=== PATIENT | male | born 1980 | race Caucasian/White ===

== ENCOUNTER 2018-11-10 22:38 | Emergency (ER) | payer OTHER ==
--- NOTE | 2018-11-10 23:14 | EDM.PDOC ---
ED HPI GENERAL MEDICAL PROBLEM - General Chief Complaint: Cardiovascular Problem Stated Complaint: heart rate Time Seen by Provider: 11/10/18 22:55 Source of Information: Reports: Patient History Limitations: Reports: No Limitations - History of Present Illness INITIAL COMMENTS - FREE TEXT/NARRATIVE: The patient presents with heart palpitations. He says since about 5 today he has noticed his heart beating hard and irregular at times. He has a history of SVT but he had an ablation and that took care of that. At times he will get some extra beats but not this hard. He has regular appointments with his rehab rn. He denies fever, chills, cough, congestion, runny nose, chest pain, shortness of breath, abdominal pain, nausea or vomiting. He does not consume much caffeine. He does not smoke or chew. He just quit chewing a couple weeks ago. Onset: Gradual Duration: Hour(s): Severity: Moderate Improves with: Reports: None Worsens with: Reports: None Associated Symptoms: Reports: No Other Symptoms - Related Data Allergies Allergy/AdvReac Type Severity Reaction Status Date / Time No Known Allergies Allergy Verified 11/10/18 22:49 Home Meds: Home Meds Esomeprazole [NexIUM] 40 mg PO DAILY 07/16/18 [History] Metoprolol Tartrate 25 mg PO BID #60 tablet 11/11/18 [Rx] Past Medical History - Past Health History Medical/Surgical History: Denies Medical/Surgical History HEENT History: Reports: Impaired Vision Cardiovascular History: Reports: Arrhythmia, Other (See Below) Other Cardiovascular History: ablation 2011 due to runs of SVT Gastrointestinal History: Reports: GERD - Infectious Disease History Infectious Disease History: Reports: Chicken Pox Social & Family History - Family History Family Medical History: Noncontributory - Tobacco Use Smoking Status *Q: Former Smoker Used Tobacco, but Quit: Yes Month/Year Tobacco Last Used: 09/2018 Tobacco Use Comment: quite chewing this september - Caffeine Use Caffeine Use: Reports: Soda - Recreational Drug Use Recreational Drug Use: No ED ROS GENERAL - Review of Systems Review Of Systems: See Below Constitutional: Reports: No Symptoms HEENT: Reports: No Symptoms Respiratory: Reports: No Symptoms Cardiovascular: Reports: Palpitations. Denies: Chest Pain Endocrine: Reports: No Symptoms GI/Abdominal: Reports: No Symptoms : Reports: No Symptoms ED EXAM, GENERAL - Physical Exam Exam: See Below Exam Limited By: No Limitations General Appearance: Alert, No Apparent Distress Ears: Normal External Exam Nose: Normal Inspection Head: Atraumatic, Normocephalic Neck: Normal Inspection Respiratory/Chest: No Respiratory Distress, Lungs Clear, Normal Breath Sounds Cardiovascular: Regular Rate, Rhythm, No Edema, No Murmur GI/Abdominal: Soft, Non-Tender, No Organomegaly, No Mass Back Exam: Normal Inspection Extremities: Normal Inspection EKG INTERPRETATION EKG Date: 11/11/18 Time: 23:12 Rhythm: Other (sinus bradycardia) Rate (Beats/Min): 57 [place]: Normal P-Wave: Present QRS: Normal ST-T: Normal QT: Normal Course - Vital Signs Last Recorded V/S: Last Vital Signs Temp 98.9 F 11/10/18 22:45 Pulse 64 11/11/18 00:18 Resp 19 11/10/18 22:45 BP 124/75 11/11/18 00:18 Pulse Ox 99 11/10/18 22:45 - Orders/Labs/Meds Orders: Active Orders 24 hr Category Date Time Status Cardiac Monitoring [RC] . DIRECTED Care 11/10/18 23:02 Active EKG Documentation Completion [RC] STAT Care 11/10/18 23:02 Active Labs: Laboratory Tests 11/10/18 11/10/18 Range/Units 23:10 23:10 WBC 5.24 (4.23-9.07) K/mm3 RBC 5.15 (4.63-6.08) M/mm3 Hgb 15.5 (13.7-17.5) gm/L Hct 43.1 (40.1-51.0) % MCV 83.7 (79.0-92.2) fl MCH 30.1 (25.7-32.2) pg MCHC 36.0 H (32.2-35.5) g/dl RDW Std Deviation 36.7 (35.1-43.9) fL Plt Count 219 (163-337) K/mm3 MPV 10.0 (9.4-12.3) fl Neut % (Auto) 54.6 (34.0-67.9) % Lymph % (Auto) 37.0 (21.8-53.1) % [place] % (Auto) 5.9 (5.3-12.2) % Eos % (Auto) 1.7 (0.8-7.0) Baso % (Auto) 0.6 (0.1-1.2) % Neut # (Auto) 2.86 (1.78-5.38) K/mm3 Lymph # (Auto) 1.94 (1.32-3.57) K/mm3 [place] # (Auto) 0.31 (0.30-0.82) K/mm3 Eos # (Auto) 0.09 (0.04-0.54) K/mm3 Baso # (Auto) 0.03 (0.01-0.08) K/mm3 Sodium 141 (136-145) mEq/L Potassium 4.4 (3.5-5.1) mEq/L Chloride 106 (98-107) mEq/L Carbon Dioxide 28 (21-32) mEq/L Anion Gap 11.4 (5-15) BUN 14 (7-18) mg/dL Creatinine 1.2 (0.7-1.3) mg/dL Est Cr Clr Drug Dosing 87.03 mL/min Estimated GFR (MDRD) > 60 (>60) mL/min BUN/Creatinine Ratio 11.7 L (14-18) Glucose 98 (74-106) mg/dL Calcium 9.2 (8.5-10.1) mg/dL Magnesium 1.9 (1.8-2.4) mg/dl Total Bilirubin 0.7 (0.2-1.0) mg/dL AST 16 (15-37) U/L ALT 28 (16-63) U/L Alkaline Phosphatase 46 (46-116) U/L Troponin I < 0.017 (0.00-0.056) ng/mL Total Protein 7.7 (6.4-8.2) g/dl Albumin 4.4 (3.4-5.0) g/dl Globulin 3.3 gm/dL Albumin/Globulin Ratio 1.3 (1-2) TSH 3rd Generation 1.794 (0.358-3.74) uIU/mL Meds: Medications Discontinued Medications Generic Name Dose Route Start Last Admin Trade Name Freq PRN Reason Stop Dose Admin Metoprolol Tartrate 25 mg 11/11/18 00:01 11/11/18 00:18 Lopressor PO 11/11/18 00:02 25 mg ONETIME ONE Administration - Re-Assessments/Exams Free Text/Narrative Re-Assessment/Exam: 11/11/18 00:49 His EKG shows nothing acute. His CBC and CMP look good. His troponin and TSH were normal. He does have some PACs that he is noticing. They are uncomfortable. I gave him some metoprolol to see if that helped and it did not help much. I will try a prescription for metoprolol. Departure - Departure Time of Disposition: 00:55 Disposition: Home, Self-Care 01 Condition: Good Clinical Impression: Palpitations Prescriptions: Metoprolol Tartrate 25 mg PO BID #60 tablet Forms: ED Department Discharge Additional Instructions: Follow up with your rehab rn. Take the metoprolol 25mg 2 times per day when you are feeling the premature atrial contractions. If you are not having troubles you may not need to take the medications. Try to avoid all stimulants the next week. Please return if you are worse. - My Orders Last 24 Hours: My Active Orders 11/10/18 23:02 Cardiac Monitoring [RC] . DIRECTED EKG Documentation Completion [RC] STAT - Assessment/Plan Last 24 Hours: My Active Orders 11/10/18 23:02 Cardiac Monitoring [RC] . DIRECTED EKG Documentation Completion [RC] STAT
[2018-11-11] MEDS ORDERED: Metoprolol Tartrate 25 MG Tab PO ONE (00:01)
== END 2018-11-11 01:02 | disposition home or self-care (01) ==
LOC: JD.ED 22:38
DX: R00.2 Palpitations (principal); Z79.899 Other long term (current) drug therapy; Z87.891 Personal history of nicotine dependence
CPT/HCPCS: 36415; 80053; 83735; 84443; 84484; 85025; 93005; 99285; A9270; 93010; 99284

== ENCOUNTER 2022-07-03 03:39 | Emergency (ER) | payer OTHER | END 2022-07-03 05:10 | disposition home or self-care (01) | LOC: JD.ED 03:39 | DX: R00.2 Palpitations (principal); K21.9 Gastro-esophageal reflux disease without esophagitis; Z87.891 Personal history of nicotine dependence; Z79.899 Other long term (current) drug therapy | CPT/HCPCS: 36415; 80053; 83735; 84484; 85025; 85379; 93005; 99285 ==

== ENCOUNTER 2022-10-12 20:29 | Emergency (ER) | payer OTHER ==
[2022-10-12] MEDS ORDERED: Orphenadrine 100 MG Tab.ER PO STA (21:39)
[2022-10-12] MEDS ORDERED: Ketorolac 30 MG/ML SDV IM ONE (21:39)
== END 2022-10-12 22:21 | disposition home or self-care (01) ==
LOC: JD.ED 20:29
DX: M54.50 Low back pain, unspecified (principal); K21.9 Gastro-esophageal reflux disease without esophagitis; Z87.891 Personal history of nicotine dependence
CPT/HCPCS: 96372; 99283; A9270; J1885

== ENCOUNTER 2023-03-28 18:51 | Emergency (ER) | payer OTHER ==
[2023-03-28] MEDS ORDERED: LORazepam 2 MG/ML SDV IVPUSH ONE (19:10)
[2023-03-28] MEDS ORDERED: Sodium Chloride 0.9% 1,000 ML IV ONE (19:10)
[2023-03-28 19:39] LABS: BASOPHILS ABSOLUTE AUTO 0.03 K/mm3 (0.01-0.08); BASOPHILS PERCENT AUTO 0.3 % (0.1-1.2); EOSINOPHILS ABSOLUTE AUTO 0.09 K/mm3 (0.04-0.54); EOSINOPHILS PERCENT AUTO 0.9 (0.8-7.0); HEMATOCRIT 41.4 % (40.1-51.0); HEMOGLOBIN 14.3 gm/dl (13.7-17.5); IMMATURE GRAN ABSOLUTE AUTO 0.01 K/mm3 (0.00-0.10); IMMATURE GRAN PERCENT AUTO 0.1 % (<=1.0); LYMPHOCYTES ABSOLUTE AUTO 1.67 K/mm3 (1.32-3.57); LYMPHOCYTES PERCENT AUTO 16.8 % (21.8-53.1); MEAN CORPUSCULAR HEMOGLOBIN 30.3 pg (25.7-32.2); MEAN CORPUSCULAR HGB CONC 34.5 g/dl (32.2-35.5); MEAN CORPUSCULAR VOLUME 87.7 fl (79.0-92.2); MEAN PLATELET VOLUME 10.4 fl (9.4-12.3); MONOCYTES ABSOLUTE AUTO 0.59 K/mm3 (0.30-0.82); MONOCYTES PERCENT AUTO 5.9 % (5.3-12.2); NEUTROPHILS ABSOLUTE AUTO 7.55 K/mm3 (1.78-5.38); PLATELET COUNT,PLT 252 K/mm3 (163-337); RED BLOOD CELL COUNT 4.72 M/mm3 (4.63-6.08); WHITE BLOOD CELL COUNT,WBC 9.94 K/mm3 (4.23-9.07)
[2023-03-28 19:55] LABS: INR 0.99; PROTHROMBIN TIME 10.6 SECONDS (9.7-12.0)
[2023-03-28 20:01] LABS: A/G RATIO 1.3 (1-2); ALANINE AMINOTRANSFERASE,ALT 23 U/L (16-63); ALKALINE PHOSPHATASE 49 U/L (46-116); ANION GAP 12.3 (5-15); ASPARTATE AMNIOTRANSFERASE,AST 12 U/L (15-37); BILIRUBIN TOTAL 0.3 mg/dL (0.2-1.0); BLOOD UREA NITROGEN,BUN 15 mg/dL (7-18); BUN/CREATININE RATIO 11.5 (14-18); CALCIUM 9.1 mg/dL (8.5-10.1); CARBON DIOXIDE,CO2 26 mEq/L (21-32); CHLORIDE,CL 103 mEq/L (98-107); CREATININE 1.3 mg/dL (0.7-1.3); EST CRCL DRUG DOSING (CG) 76.43 mL/min; ESTIMATED GFR 70 mL/min (>60); GLUCOSE RANDOM 121 mg/dL (70-99); POTASSIUM,K 4.3 mEq/L (3.5-5.1); PROTEIN TOTAL,TP 7.1 g/dl (6.4-8.2); SODIUM,NA 137 mEq/L (136-145)
[2023-03-28 20:02] LABS: TROPONIN I HIGH SENSITIVITY < 4 pg/mL (<=76)
== END 2023-03-28 21:18 | disposition home or self-care (01) ==
LOC: JD.ED 18:51
DX: R07.89 Other chest pain (principal); T67.5XXA Heat exhaustion, unspecified, initial encounter; K21.9 Gastro-esophageal reflux disease without esophagitis; Z86.16 Personal history of COVID-19
CPT/HCPCS: 36415; 71045; 80053; 84484; 85025; 85610; 93005; 96374; 99285; J2060; J7030; 93010; 99284

== ENCOUNTER 2023-07-15 15:01 | Emergency (ER) | payer OTHER | END 2023-07-15 16:15 | disposition home or self-care (01) | LOC: JD.ED 15:01 | DX: S61.255A Open bite of left ring finger without damage to nail, initial encounter (principal); K21.9 Gastro-esophageal reflux disease without esophagitis; Z86.16 Personal history of COVID-19; Z79.899 Other long term (current) drug therapy; W54.0XXA Bitten by dog, initial encounter | CPT/HCPCS: 99283 ==